=== PATIENT | female | born 1955 | race Caucasian/White ===

== ENCOUNTER 2016-03-30 09:50 | Day surgery (SDC) | payer MEDICAID ==
[~2016-03-30 09:50] MED LIST: DIAZ5 PO; FLUO20TA20 PO; LASI80TA PO; OMEP20TA39 PO; OXYC5 PO; PROP40TA3 PO; SPIR50TA21 PO; WAL-10TA2 PO
[2016-03-30 10:59] VITALS: BP 128/67; PULSE 69; RESP 14; TEMP 97.2; O2SAT 97
[2016-03-30 12:45] VITALS: BP 111/59; PULSE 66; RESP 18; TEMP 97.7; O2SAT 98
[2016-03-30 12:49] VITALS: BP 115/59; PULSE 66; RESP 18; TEMP 97.7; O2SAT 98
[2016-03-30] MEDS ORDERED: ALBUMIN HUMAN 25% 50GM-W/12.5GM FOR 62.5GM IV ONE (13:00)
[2016-03-30] MEDS ORDERED: ALBUMIN HUMAN 25% 12.5GM-W/50GM FOR 62.5GM IV ONE (13:00)
[2016-03-30 13:04] VITALS: BP 96/70; PULSE 65; RESP 17; O2SAT 97
--- NOTE | 2016-03-30 13:15 | RADRPT ---
EXAM DATE/TIME: 03/30/2016 10:40 [facility] COMPARISON: US GUIDED ABD PARACENTESIS, March 02, 2016, 8:45. INDICATIONS : Ascites. MEDICAL HISTORY : Gastroesophageal reflux disease. Hepatitis C. Deep venous thrombosis. Stroke. Hypertension. Diabetes. Cirrhosis. SURGICAL HISTORY : Paracentesis. Vascular surgery right lower extremity. ENCOUNTER: Subsequent ACUITY: 1 month PAIN SCORE: 4/10 LOCATION: Right lower quadrant FLUID: Total volume of 11,000 of clear, yellow fluid was removed. Fluid was discarded. Paracentesis was therapeutic only. Post procedure scanning reveals no hematoma or other complication. TECHNIQUE: 1. Ultrasound guidance for abdominal paracentesis. 2. Paracentesis. The risks, benefits, and alternatives to ultrasound guided paracentesis were explained to the patient in detail including the risk of bleeding and infection. Written and verbal informed consent was obt ained. With the patient on the ultrasound table, ultrasound imaging was used to select the most appropriate approach for paracentesis. Overlying skin was prepped and draped in the usual sterile fashion and wi th a local anesthetic, a dermatotomy was made with an 11 blade scalpel. A 6 Lebanese Abe-S-dhxpgcpb ca theter was introduced into the peritoneal cavity and fluid was collected. The patient tolerated the procedure well and left the ultrasound suite in stable condition. CONCLUSION: Uncomplicated ultrasound guided paracentesis. Patient received albumin per protocol. Chiki Pyle MD FACR on March 30, 2016 at 13:13 Board Certified Radiologist. This report was verified electronically.
[2016-03-30 14:00] VITALS: BP 92/50; PULSE 73; RESP 17; O2SAT 97
== END 2016-03-30 15:10 | disposition home or self-care (01) ==
LOC: HRAD 09:50 → HRIP 09:51 → HRAD 15:10
PROVIDERS: ATTEND Family Medicine
DX: R18.8 Other ascites (principal)
CPT/HCPCS: 49083; 96365; C1729; P9047

== ENCOUNTER 2016-04-23 08:50 | Day surgery (SDC) | payer MEDICAID ==
[2016-04-23 09:18] VITALS: BP 99/67; PULSE 62; RESP 20; TEMP 97.6; O2SAT 94
[2016-04-23 11:40] VITALS: BP 88/53; PULSE 64; RESP 18; TEMP 97.4; O2SAT 90
[2016-04-23 11:55] VITALS: BP 111/51; PULSE 63; RESP 18; O2SAT 93
[2016-04-23] MEDS ORDERED: ALBUMIN HUMAN 25% 75 GM IV ONE (12:00)
--- NOTE | 2016-04-23 13:22 | RADRPT ---
EXAM DATE/TIME: 04/23/2016 09:24 [facility] COMPARISON: US GUIDED ABD PARACENTESIS, March 30, 2016, 10:40. INDICATIONS : Ascites. MEDICAL HISTORY : Gastroesophageal reflux disease. Hepatitis C. Deep venous thrombosis. CVA. HTN. Borderline diabetes. Ascites. Cirrhosis. Anticoagulant therapy, Xarelto. Depression. Anxiety. Substance use. SURGICAL HISTORY : Paracentesis. Right lower leg vascular surgery. ENCOUNTER: Sequela ACUITY: 3 weeks PAIN SCORE: 8/10 LOCATION: Right lower quadrant FLUID: Total volume of 13,200 cc of clear, yellow fluid was removed. Fluid was discarded. Paracentesis was therapeutic only. Post procedure scanning reveals no hematoma or other complication. TECHNIQUE: 1. Ultrasound guidance for abdominal paracentesis. 2. Paracentesis. The risks, benefits, and alternatives to ultrasound guided paracentesis were explained to the patient in detail including the risk of bleeding and infection. Written and verbal informed consent was obt ained. With the patient on the ultrasound table, ultrasound imaging was used to select the most appropriate approach for paracentesis. Overlying skin was prepped and draped in the usual sterile fashion and wi th a local anesthetic, a dermatotomy was made with an 11 blade scalpel. A 6 [place] Bmv-M-jxqvuzqp ca theter was introduced into the peritoneal cavity and fluid was collected. The patient tolerated the procedure well and left the ultrasound suite in stable condition. CONCLUSION: Successful ultrasound-guided paracentesis yielding 13,200 cc of clear yellow ascites. Duane Duval MD on April 23, 2016 at 13:19 Board Certified Radiologist. This report was verified electronically.
== END 2016-04-23 13:55 | disposition home or self-care (01) ==
LOC: HRAD 08:50 → HRIP 08:51 → HRAD 13:55
PROVIDERS: ATTEND Family Medicine
DX: R18.8 Other ascites (principal); K21.9 Gastro-esophageal reflux disease without esophagitis; B19.20 Unspecified viral hepatitis C without hepatic coma; Z86.73 Personal history of transient ischemic attack (TIA), and cerebral infarction without residual deficits; I10 Essential (primary) hypertension
CPT/HCPCS: 49083; C1729; P9047

== ENCOUNTER → 2016-05-21 | Day surgery (SDC) | payer MEDICAID ==
[~2016-05-21] MED LIST changes: +ALBUMIN HUMAN 25% 25 GM/100 ML BAGP IV ONE
[2016-05-21 08:48] VITALS: BP 110/63; PULSE 67; RESP 14; TEMP 98; O2SAT 96
[2016-05-21 10:45] VITALS: BP 127/58; PULSE 64; RESP 16; TEMP 97.7; O2SAT 100
[2016-05-21 11:00] VITALS: BP 129/61; PULSE 63; RESP 16; O2SAT 100
--- NOTE | 2016-05-21 13:55 | RADRPT ---
EXAM DATE/TIME: 05/21/2016 08:27 [facility] COMPARISON: US GUIDED ABD PARACENTESIS, April 23, 2016, 9:24. INDICATIONS : Ascites. Patient is becoming very somnolent and may be reaching maximum therapeutic benefit from par acentesis. MEDICAL HISTORY : Gastroesophageal reflux disease. Hepatitis C. DVT. CVA. HTN. Borderline diabetes. Ascites. Cirrhos is. Anticoagulant therapy, Xarelto. Depression. SURGICAL HISTORY : Paracentesis. Right lower leg vascular surgery. ENCOUNTER: Sequela ACUITY: 1 day PAIN SCORE: 1/10 LOCATION: Right lower quadrant FLUID: Total volume of 16,600 cc of clear, yellow fluid was removed. Fluid was discarded. Paracentesis was therapeutic only. Post procedure scanning reveals no hematoma or other complication. TECHNIQUE: 1. Ultrasound guidance for abdominal paracentesis. 2. Paracentesis. The risks, benefits, and alternatives to ultrasound guided paracentesis were explained to the patient in detail including the risk of bleeding and infection. Written and verbal informed consent was obt ained. With the patient on the ultrasound table, ultrasound imaging was used to select the most appropriate approach for paracentesis. Overlying skin was prepped and draped in the usual sterile fashion and wi th a local anesthetic, a dermatotomy was made with an 11 blade scalpel. A 6 Russian Cvx-F-fnplmlsc ca theter was introduced into the peritoneal cavity and fluid was collected. The patient tolerated the procedure well and left the ultrasound suite in stable condition. CONCLUSION: Uncomplicated ultrasound guided paracentesis. Patient received albumin per protocol. Chiki Pyle MD FACR on May 21, 2016 at 13:50 Board Certified Radiologist. This report was verified electronically.
== END | disposition home or self-care (01) ==
LOC: HRAD 08:00
PROVIDERS: ATTEND Family Medicine
DX: R18.8 Other ascites (principal); B19.20 Unspecified viral hepatitis C without hepatic coma; I10 Essential (primary) hypertension; K21.9 Gastro-esophageal reflux disease without esophagitis; R73.03 Prediabetes; Z86.73 Personal history of transient ischemic attack (TIA), and cerebral infarction without residual deficits
CPT/HCPCS: 49083; 96365; C1729; P9047

== ENCOUNTER 2016-06-11 08:11 | Day surgery (SDC) | payer MEDICAID ==
[~2016-06-11 08:11] MED LIST changes: -ALBUMIN HUMAN 25% 25 GM/100 ML BAGP IV ONE
[2016-06-11 09:03] VITALS: BP 94/56; PULSE 66; RESP 14; TEMP 98.7; O2SAT 97
[2016-06-11 10:40] VITALS: BP 130/54; PULSE 70; RESP 16; O2SAT 98
[2016-06-11 10:55] VITALS: BP 110/38; PULSE 69; RESP 18; O2SAT 100
[2016-06-11] MEDS ORDERED: ALBUMIN HUMAN 25% 50GM-W/12.5GM FOR 62.5GM IV ONE (11:00)
[2016-06-11] MEDS ORDERED: ALBUMIN HUMAN 25% 12.5GM-W/50GM FOR 62.5GM IV ONE (11:00)
[2016-06-11] MEDS ORDERED: ACETAMINOPHEN/HYDROcodone 325 MG/5 MG TAB PO ONE (12:00)
[2016-06-11] MEDS ORDERED: MORPHINE SULFATE 4 MG/ML INJ IV ONE (12:15)
--- NOTE | 2016-06-11 12:20 | RADRPT ---
EXAM DATE/TIME: 06/11/2016 08:45 [facility] COMPARISON: US GUIDED ABD PARACENTESIS, May 21, 2016, 8:27. INDICATIONS : Ascites. MEDICAL HISTORY : Gastroesophageal reflux disease. Hepatitis C. Cirrhosis. [place] diabetes. DVT. CVA. SURGICAL HISTORY : Paracentesis. Right lower leg vascular surgery. Anticoagulant therapy, Xarelto. Depression. Ascites ENCOUNTER: Sequela ACUITY: 2 weeks PAIN SCORE: 1/10 LOCATION: Right lower quadrant FLUID: Total volume of 10,200 cc of clear, yellow fluid was removed. Fluid was discarded. Paracentesis was therapeutic only. Post procedure scanning reveals no hematoma or other complication. TECHNIQUE: 1. Ultrasound guidance for abdominal paracentesis. 2. Paracentesis. The risks, benefits, and alternatives to ultrasound guided paracentesis were explained to the patient in detail including the risk of bleeding and infection. Written and verbal informed consent was obt ained. With the patient on the ultrasound table, ultrasound imaging was used to select the most appropriate approach for paracentesis. Overlying skin was prepped and draped in the usual sterile fashion and wi th a local anesthetic, a dermatotomy was made with an 11 blade scalpel. A 6 Iraqi Zqz-Z-evvkzmvz ca theter was introduced into the peritoneal cavity and fluid was collected. The patient tolerated the procedure well and left the ultrasound suite in stable condition. CONCLUSION: Uncomplicated ultrasound guided paracentesis. Angel Agrawal MD on June 11, 2016 at 12:18 Board Certified Radiologist. This report was verified electronically.
== END 2016-06-11 12:31 | disposition home or self-care (01) ==
LOC: HRAD 08:11 → HRIP 08:15 → HRAD 12:31
PROVIDERS: ATTEND Family Medicine
DX: R18.8 Other ascites (principal); B19.20 Unspecified viral hepatitis C without hepatic coma; E11.9 Type 2 diabetes mellitus without complications; K21.9 Gastro-esophageal reflux disease without esophagitis; Z86.73 Personal history of transient ischemic attack (TIA), and cerebral infarction without residual deficits
CPT/HCPCS: 49083; 96365; C1729; P9047

== ENCOUNTER 2016-06-25 07:53 | Day surgery (SDC) | payer MEDICAID ==
[2016-06-25 09:21] VITALS: BP 120/64; PULSE 62; RESP 16; TEMP 96.9; O2SAT 99
[2016-06-25] MEDS ORDERED: ALBUMIN HUMAN 25% 50GM-W/12.5GM FOR 62.5GM IV ONE (10:15)
[2016-06-25] MEDS ORDERED: ALBUMIN HUMAN 25% 12.5GM-W/50GM FOR 62.5GM IV ONE (10:15)
[2016-06-25 10:32] VITALS: BP 142/64; PULSE 74; RESP 20; TEMP 97.6; O2SAT 100
[2016-06-25 10:53] VITALS: BP 125/65; PULSE 73; RESP 20; O2SAT 100
--- NOTE | 2016-06-25 11:24 | RADRPT ---
EXAM DATE/TIME: 06/25/2016 08:28 [facility] COMPARISON: US GUIDED ABD PARACENTESIS, June 11, 2016, 8:45. INDICATIONS : Ascites. MEDICAL HISTORY : Gastroesophageal reflux disease. Hepatitis C. Cirrhosis. [place] diabetes. Deep vein thrombosis. Cerebrovascular accident. Anticoagulant therapy, Xarelto. Depression. Ascites. SURGICAL HISTORY : Right lower leg vascular surgery. Paracentesis. ENCOUNTER: Sequela ACUITY: 2 weeks PAIN SCORE: 2/10 LOCATION: Right lower quadrant FLUID: Total volume of 10,000 cc of clear, yellow fluid was removed. Fluid was discarded. Paracentesis was therapeutic only. Post procedure scanning reveals no hematoma or other complication. TECHNIQUE: 1. Ultrasound guidance for abdominal paracentesis. 2. Paracentesis. The risks, benefits, and alternatives to ultrasound guided paracentesis were explained to the patient in detail including the risk of bleeding and infection. Written and verbal informed consent was obt ained. With the patient on the ultrasound table, ultrasound imaging was used to select the most appropriate approach for paracentesis. Overlying skin was prepped and draped in the usual sterile fashion and wi th a local anesthetic, a dermatotomy was made with an 11 blade scalpel. A 6 Swedish Kep-H-qfcnqera ca theter was introduced into the peritoneal cavity and fluid was collected. The patient tolerated the procedure well and left the ultrasound suite in stable condition. CONCLUSION: Uncomplicated ultrasound guided paracentesis. Talat Darby MD on June 25, 2016 at 11:22 Board Certified Radiologist. This report was verified electronically.
== END 2016-06-25 11:05 | disposition home or self-care (01) ==
LOC: HRAD 07:53 → HRIP 07:56 → HRAD 11:05
PROVIDERS: ATTEND Family Medicine
DX: R18.8 Other ascites (principal); B19.20 Unspecified viral hepatitis C without hepatic coma; E11.9 Type 2 diabetes mellitus without complications; K21.9 Gastro-esophageal reflux disease without esophagitis; F32.9 Major depressive disorder, single episode, unspecified; Z86.718 Personal history of other venous thrombosis and embolism; Z86.73 Personal history of transient ischemic attack (TIA), and cerebral infarction without residual deficits
CPT/HCPCS: 49083; 96365; C1729; P9047

== ENCOUNTER 2016-07-20 07:53 | Day surgery (SDC) | payer MEDICAID ==
[2016-07-20 08:50] VITALS: BP 125/66; PULSE 67; RESP 16; TEMP 97.1; O2SAT 100
[2016-07-20 11:10] VITALS: BP 99/46; PULSE 67; RESP 18; TEMP 98.1; O2SAT 98
[2016-07-20 11:25] VITALS: BP 100/49; PULSE 64; RESP 18; O2SAT 98
[2016-07-20] MEDS ORDERED: ALBUMIN HUMAN 25% 75 GM IV ONE (12:00)
--- NOTE | 2016-07-20 12:46 | RADRPT ---
EXAM DATE/TIME: 07/20/2016 09:03 [facility] COMPARISON: US GUIDED ABD PARACENTESIS, June 25, 2016, 8:28. INDICATIONS : Ascites. MEDICAL HISTORY : Gastroesophageal reflux disease. Hepatitis C. Cirrhosis. [place] diabetes. Deep vein thrombosis. Cerebrovascular accident. Anticoagulant therapy, Xarelto. Depression. Ascites. SURGICAL HISTORY : Right lower leg vascular surgery. Paracentesis. ENCOUNTER: Sequela ACUITY: 3 weeks PAIN SCORE: 1/10 LOCATION: Right lower quadrant FLUID: Total volume of 13,700 cc of clear, yellow fluid was removed. Fluid was discarded. Paracentesis was therapeutic only. Post procedure scanning reveals no hematoma or other complication. TECHNIQUE: 1. Ultrasound guidance for abdominal paracentesis. 2. Paracentesis. The risks, benefits, and alternatives to ultrasound guided paracentesis were explained to the patient in detail including the risk of bleeding and infection. Written and verbal informed consent was obt ained. With the patient on the ultrasound table, ultrasound imaging was used to select the most appropriate approach for paracentesis. Overlying skin was prepped and draped in the usual sterile fashion and wi th a local anesthetic, a dermatotomy was made with an 11 blade scalpel. A 6 [place] Fge-O-uikphevj ca theter was introduced into the peritoneal cavity and fluid was collected. The patient tolerated the procedure well and left the ultrasound suite in stable condition. CONCLUSION: Uncomplicated ultrasound guided paracentesis. Talat Darby MD on July 20, 2016 at 12:44 Board Certified Radiologist. This report was verified electronically.
[2016-07-20 13:00] VITALS: BP 102/50; PULSE 65; RESP 18; O2SAT 99
== END 2016-07-20 13:15 | disposition home or self-care (01) ==
LOC: HRAD 07:53 → HRIP 07:54 → HRAD 13:15
PROVIDERS: ATTEND Family Medicine
DX: R18.8 Other ascites (principal); K21.9 Gastro-esophageal reflux disease without esophagitis; B19.20 Unspecified viral hepatitis C without hepatic coma; Z86.718 Personal history of other venous thrombosis and embolism; Z86.73 Personal history of transient ischemic attack (TIA), and cerebral infarction without residual deficits; Z79.01 Long term (current) use of anticoagulants
CPT/HCPCS: 49083; 96365; 96366; C1729

== ENCOUNTER 2016-08-03 08:04 | Day surgery (SDC) | payer MEDICAID ==
--- NOTE | 2016-08-03 11:55 | RADRPT ---
EXAM DATE/TIME: 08/03/2016 08:34 [facility] COMPARISON: No previous studies available for comparison. INDICATIONS : Ascites. MEDICAL HISTORY : Gastroesophageal reflux disease. Hepatitis C. Cirrhosis. [place] diabetes. Deep vein thrombosis. Cerebrovascular accident. Anticoagulant therapy, Xarelto. Depression. Ascites. Right lower leg vascul ar surgery. Paracentesis. SURGICAL HISTORY : ENCOUNTER: Sequela ACUITY: 2 weeks PAIN SCORE: Nonresponsive. LOCATION: Bilateral abdomen. AREA EVALUATED: Abdomen. FINDINGS: Imaging of the abdomen and pelvis was performed to evaluate for ascites for possible paracentesis. CONCLUSION: There is not enough fluid for a safe paracentesis Chiki Pyle MD FACR on August 03, 2016 at 11:37 Board Certified Radiologist. This report was verified electronically.
== END 2016-08-03 09:30 | disposition home or self-care (01) ==
LOC: HRAD 08:04 → HRIP 08:05 → HRAD 09:30
PROVIDERS: ATTEND Family Medicine
DX: R18.8 Other ascites (principal); B19.20 Unspecified viral hepatitis C without hepatic coma; E11.9 Type 2 diabetes mellitus without complications; K21.9 Gastro-esophageal reflux disease without esophagitis; F32.9 Major depressive disorder, single episode, unspecified; Z86.718 Personal history of other venous thrombosis and embolism; Z86.73 Personal history of transient ischemic attack (TIA), and cerebral infarction without residual deficits
CPT/HCPCS: 76705